=== PATIENT | male | born 1965 | race Caucasian/White ===

== ENCOUNTER 2020-11-27 08:13 | Emergency (ER) | payer OTHER ==
[~2020-11-27] VITALS: Ht 182.9 cm; Wt 83.5 kg
[~2020-11-27 08:13] MED LIST: CIPR500 PO; CRUTCH USE; FAMO20 PO; HYDACE25S PR; HYOS.125 SL; IBUP200 PO; OXYACE5T PO; RXOXYACE PO; RXTRAM50 PO; TRAM50 PO
[2020-11-27 08:49] LABS: BASOPHILS ABSOLUTE AUTO 0.07 K/mm3 (0.00-0.23); BASOPHILS PERCENT AUTO 1 % (0-2); Hematocrit 45.3 % (37.0-53.0); Hemoglobin 15.6 g/dL (13.5-17.5); LYMPHOCYTES PERCENT AUTO 21 % (21-46); MONOCYTES ABSOLUTE AUTO 1.39 K/mm3 (0.16-1.47); MONOCYTES PERCENT AUTO 14 % (4-13); Mean Corpuscular HGB Conc 34.4 g/dL (31.5-36.5); Mean Corpuscular Volume 90 fL (80-100); Mean Platelet Volume 10.2 fL (9.1-12.4); Platelet Count 288 K/mm3 (150-400); RDW Coefficient Variation 13.9 % (11.7-14.2); Red Blood Cell Count 5.03 M/mm3 (4.30-5.90); White Blood Cell Count 10.19 K/mm3 (4.00-11.30)
[2020-11-27 08:59] LABS: EOSINOPHILS ABSOLUTE AUTO 0.39 K/mm3 (0.00-0.68); EOSINOPHILS PERCENT AUTO 4 % (0-6); IMMATURE GRAN ABSOLUTE AUTO 0.03 K/mm3 (0.00-0.10); IMMATURE GRAN PERCENT AUTO 0 % (0-1); NEUTROPHILS ABSOLUTE AUTO 6.21 K/mm3 (1.96-9.15); NEUTROPHILS PERCENT AUTO 61 % (41-73)
[2020-11-27 09:10] LABS: International Normalized Ratio 0.95; Prothrombin Time Results 10.3 Sec (9.7-11.5)
[2020-11-27 09:12] LABS: Alanine Aminotransfer (ALT/SGP 18 U/L (12-78); Albumin, Blood 3.6 g/dL (3.4-5.0); Albumin/Globulin Ratio 0.8 (0.8-1.8); Alk Phos 46 U/L (50-136); Anion Gap 6 mmol/L (6-16); Aspartate Aminotrans (AST/SGOT 11 U/L (12-37); Bilirubin, Total 0.5 mg/dL (0.1-1.0); Blood Urea Nitrogen 12 mg/dL (8-24); Bun/Creatinine Ratio 14.1 (12.0-20.0); CO2, Blood 25 mmol/L (21-32); Calcium, Blood 9.3 mg/dL (8.5-10.1); Chloride, Blood 102 mmol/L (98-108); Creatinine, Blood 0.85 mg/dL (0.60-1.20); Globulin, Blood 4.5 g/dL (2.2-4.0); Glomerular Filtration Rate >60 (60-); Glucose, Blood 105 mg/dL (70-99); Potassium, Blood 3.8 mmol/L (3.5-5.5); Sodium, Blood 133 mmol/L (136-145); Total Protein, Blood 8.1 g/dL (6.4-8.2)
[2020-11-27] MEDS ORDERED: ONDA4ODT MM (09:56)
[2020-11-27] MEDS ORDERED: AMOCLA875 PO (09:56)
== END 2020-11-27 12:06 | disposition home or self-care (01) ==
LOC: ER 08:13
PROVIDERS: Physician Assistant
DX: K51.00 Ulcerative (chronic) pancolitis without complications (principal); Z88.8 Allergy status to other drugs, medicaments and biological substances; Z79.899 Other long term (current) drug therapy
CPT/HCPCS: 36415; 74177; 80053; 83690; 85025; 85610; 86850; 86870; 86900; 86901; 93005; 93010; 96372-59; 96374-59; 99284-25; A9270; J1100; J2405; J7030; Q9967

== ENCOUNTER 2020-12-03 10:26 | Emergency (ER) | payer OTHER ==
[~2020-12-03] VITALS: Ht 182.9 cm; Wt 78.5 kg
[~2020-12-03 10:26] MED LIST changes: +AMOCLA875 PO; +ONDA4ODT MM
[2020-12-03 11:09] LABS: BASOPHILS ABSOLUTE AUTO 0.11 K/mm3 (0.00-0.23); BASOPHILS PERCENT AUTO 1 % (0-2); EOSINOPHILS PERCENT AUTO 7 % (0-6); Hematocrit 44.7 % (37.0-53.0); Hemoglobin 14.9 g/dL (13.5-17.5); IMMATURE GRAN ABSOLUTE AUTO 0.07 K/mm3 (0.00-0.10); IMMATURE GRAN PERCENT AUTO 1 % (0-1); LYMPHOCYTES ABSOLUTE AUTO 2.13 K/mm3 (0.84-5.20); LYMPHOCYTES PERCENT AUTO 17 % (21-46); MONOCYTES ABSOLUTE AUTO 1.65 K/mm3 (0.16-1.47); MONOCYTES PERCENT AUTO 13 % (4-13); Mean Corpuscular HGB 30.2 pg (26.0-34.0); Mean Corpuscular HGB Conc 33.3 g/dL (31.5-36.5); Mean Corpuscular Volume 91 fL (80-100); Mean Platelet Volume 9.9 fL (9.1-12.4); NEUTROPHILS ABSOLUTE AUTO 8.06 K/mm3 (1.96-9.15); NEUTROPHILS PERCENT AUTO 62 % (41-73); Platelet Count 365 K/mm3 (150-400); RDW Coefficient Variation 13.2 % (11.7-14.2); RDW Standard Deviation 43.4 fL (35.1-46.3); Red Blood Cell Count 4.94 M/mm3 (4.30-5.90); White Blood Cell Count 12.92 K/mm3 (4.00-11.30)
[2020-12-03 11:25] LABS: Alanine Aminotransfer (ALT/SGP 13 U/L (12-78); Albumin/Globulin Ratio 0.7 (0.8-1.8); Alk Phos 45 U/L (50-136); Anion Gap 3 mmol/L (6-16); Aspartate Aminotrans (AST/SGOT 5 U/L (12-37); Bilirubin, Total 0.3 mg/dL (0.1-1.0); Blood Urea Nitrogen 10 mg/dL (8-24); Bun/Creatinine Ratio 9.4 (12.0-20.0); CO2, Blood 30 mmol/L (21-32); Calcium, Blood 9.1 mg/dL (8.5-10.1); Chloride, Blood 100 mmol/L (98-108); Creatinine, Blood 1.06 mg/dL (0.60-1.20); Globulin, Blood 4.2 g/dL (2.2-4.0); Glomerular Filtration Rate >60 (60-); Glucose, Blood 111 mg/dL (70-99); Sodium, Blood 133 mmol/L (136-145); Total Protein, Blood 7.2 g/dL (6.4-8.2)
[2020-12-03 11:43] LABS: Magnesium, Blood 2.2 mg/dL (1.6-2.4); Thyroid Stimulating Hormone 4.06 uIU/mL (0.360-4.800)
[2020-12-03 13:10] LABS: Source, Urine Clean Catch
[2020-12-03] MEDS ORDERED: ONDA4ODT SL (13:16)
[2020-12-03] MEDS ORDERED: IMODIUM A-D2 M1 PO (13:16)
[2020-12-03 13:19] LABS: Adenovirus F 40/41 Not Detected (NOT DETECT); Astrovirus Not Detected (NOT DETECT); Campylobacter Sp Not Detected (NOT DETECT); Cryptosporidium Not Detected (NOT DETECT); Cyclospora Cayetanensis Not Detected (NOT DETECT); E. Coli O157 Not Detected (NOT DETECT); Entamoeba Histolytica Not Detected (NOT DETECT); Enteroaggregative E. coli-EAEC Not Detected (NOT DETECT); Enteropathogenic E. coli-EPEC Not Detected (NOT DETECT); Enterotoxigenic E. coli-ETEC Not Detected (NOT DETECT); Giardia Lamblia Not Detected (NOT DETECT); Norovirus GI/GII Not Detected (NOT DETECT); Plesiomonas Shigelloides Not Detected (NOT DETECT); Rotavirus A Not Detected (NOT DETECT); Salmonella Sp Not Detected (NOT DETECT); Sapovirus Not Detected (NOT DETECT); Shiga Toxin-prod E. coli-STEC Not Detected (NOT DETECT); Shigella/Enteroin E. coli-EIEC Not Detected (NOT DETECT); Vibrio Cholerae Not Detected (NOT DETECT); Vibrio Sp Not Detected (NOT DETECT); Yersinia Enterocolitica Not Detected (NOT DETECT)
[2020-12-03 13:21] LABS: Bilirubin, Urine Neg (Neg); Blood, Urine Neg (Neg); Glucose Qualitative, Urine Neg (Neg); Ketones, Urine Neg (Neg); Leukocyte Esterase, Urine Neg (Neg); Nitrite, Urine Neg (Neg); Protein, Urine Neg (Neg); Specific Gravity, Urine 1.005 (1.003-1.022); Urobilinogen, Urine NORM (Normal)
[2020-12-03 13:39] LABS: Appearance, Urine Clear (Clear); Color, Urine Pale Yellow (P-Yellow)
== END 2020-12-03 14:52 | disposition home or self-care (01) ==
LOC: ER 10:26
PROVIDERS: Emergency Medicine
DX: K52.9 Noninfective gastroenteritis and colitis, unspecified (principal); Z88.8 Allergy status to other drugs, medicaments and biological substances
CPT/HCPCS: 0097U; 36415; 51798; 80053; 81003; 83735; 84443; 85025; 96361; 96374; 99284-25; J2405; J7120

== ENCOUNTER 2020-12-07 08:17 | Emergency (ER) | payer OTHER ==
[~2020-12-07] VITALS: Ht 182.9 cm; Wt 78.5 kg
[~2020-12-07 08:17] MED LIST changes: +IMODIUM A-D2 M1 PO; +ONDA4ODT SL
[2020-12-07 09:43] LABS: BASOPHILS ABSOLUTE AUTO 0.06 K/mm3 (0.00-0.23); BASOPHILS PERCENT AUTO 1 % (0-2); EOSINOPHILS ABSOLUTE AUTO 0.43 K/mm3 (0.00-0.68); EOSINOPHILS PERCENT AUTO 4 % (0-6); Hematocrit 42.3 % (37.0-53.0); Hemoglobin 14.1 g/dL (13.5-17.5); IMMATURE GRAN ABSOLUTE AUTO 0.05 K/mm3 (0.00-0.10); IMMATURE GRAN PERCENT AUTO 1 % (0-1); LYMPHOCYTES PERCENT AUTO 18 % (21-46); MONOCYTES ABSOLUTE AUTO 1.16 K/mm3 (0.16-1.47); MONOCYTES PERCENT AUTO 11 % (4-13); Mean Corpuscular HGB 30.4 pg (26.0-34.0); Mean Corpuscular HGB Conc 33.3 g/dL (31.5-36.5); Mean Corpuscular Volume 91 fL (80-100); Mean Platelet Volume 9.7 fL (9.1-12.4); NEUTROPHILS ABSOLUTE AUTO 6.68 K/mm3 (1.96-9.15); NEUTROPHILS PERCENT AUTO 66 % (41-73); Platelet Count 412 K/mm3 (150-400); RDW Coefficient Variation 13.5 % (11.7-14.2); RDW Standard Deviation 46.1 fL (35.1-46.3); Red Blood Cell Count 4.64 M/mm3 (4.30-5.90); White Blood Cell Count 10.18 K/mm3 (4.00-11.30)
[2020-12-07 09:54] LABS: Alanine Aminotransfer (ALT/SGP 15 U/L (12-78); Albumin, Blood 2.7 g/dL (3.4-5.0); Albumin/Globulin Ratio 0.7 (0.8-1.8); Alk Phos 45 U/L (50-136); Anion Gap 0 mmol/L (6-16); Aspartate Aminotrans (AST/SGOT 6 U/L (12-37); Bilirubin, Total 0.1 mg/dL (0.1-1.0); Blood Urea Nitrogen 8 mg/dL (8-24); Bun/Creatinine Ratio 8.7 (12.0-20.0); CO2, Blood 31 mmol/L (21-32); Calcium, Blood 8.5 mg/dL (8.5-10.1); Chloride, Blood 105 mmol/L (98-108); Creatinine, Blood 0.92 mg/dL (0.60-1.20); Globulin, Blood 4.1 g/dL (2.2-4.0); Glomerular Filtration Rate >60 (60-); Glucose, Blood 92 mg/dL (70-99); Potassium, Blood 4.7 mmol/L (3.5-5.5); Sodium, Blood 136 mmol/L (136-145); Total Protein, Blood 6.8 g/dL (6.4-8.2)
[2020-12-07] MEDS ORDERED: LOPE2C PO (10:46)
[2020-12-07] MEDS ORDERED: ONDA4ODT MM (10:46)
== END 2020-12-07 11:10 | disposition home or self-care (01) ==
LOC: ER 08:17
PROVIDERS: Physician Assistant
DX: R19.7 Diarrhea, unspecified (principal); R10.30 Lower abdominal pain, unspecified; Z88.8 Allergy status to other drugs, medicaments and biological substances; Z79.899 Other long term (current) drug therapy
CPT/HCPCS: 36415; 80053; 83690; 85025; 99284; J7030

== ENCOUNTER 2020-12-16 13:11 | Emergency (ER) | payer OTHER ==
[~2020-12-16] VITALS: Ht 182.9 cm; Wt 80.7 kg
[~2020-12-16 13:11] MED LIST changes: +LOPE2C PO
[2020-12-16 14:11] LABS: BASOPHILS ABSOLUTE AUTO 0.04 K/mm3 (0.00-0.23); BASOPHILS PERCENT AUTO 0 % (0-2); EOSINOPHILS ABSOLUTE AUTO 0.75 K/mm3 (0.00-0.68); EOSINOPHILS PERCENT AUTO 8 % (0-6); Hematocrit 40.8 % (37.0-53.0); Hemoglobin 13.7 g/dL (13.5-17.5); IMMATURE GRAN ABSOLUTE AUTO 0.04 K/mm3 (0.00-0.10); IMMATURE GRAN PERCENT AUTO 0 % (0-1); LYMPHOCYTES ABSOLUTE AUTO 1.53 K/mm3 (0.84-5.20); LYMPHOCYTES PERCENT AUTO 16 % (21-46); MONOCYTES ABSOLUTE AUTO 0.98 K/mm3 (0.16-1.47); MONOCYTES PERCENT AUTO 10 % (4-13); Mean Corpuscular HGB 29.9 pg (26.0-34.0); Mean Corpuscular HGB Conc 33.6 g/dL (31.5-36.5); Mean Corpuscular Volume 89 fL (80-100); Mean Platelet Volume 9.4 fL (9.1-12.4); NEUTROPHILS ABSOLUTE AUTO 6.36 K/mm3 (1.96-9.15); NEUTROPHILS PERCENT AUTO 66 % (41-73); Platelet Count 328 K/mm3 (150-400); RDW Coefficient Variation 13.6 % (11.7-14.2); RDW Standard Deviation 44.5 fL (35.1-46.3); Red Blood Cell Count 4.58 M/mm3 (4.30-5.90)
[2020-12-16 14:16] LABS: Alanine Aminotransfer (ALT/SGP 21 U/L (12-78); Albumin, Blood 2.3 g/dL (3.4-5.0); Albumin/Globulin Ratio 0.5 (0.8-1.8); Alk Phos 53 U/L (50-136); Anion Gap 2 mmol/L (6-16); Aspartate Aminotrans (AST/SGOT 17 U/L (12-37); Bilirubin, Total 0.2 mg/dL (0.1-1.0); Blood Urea Nitrogen 10 mg/dL (8-24); Bun/Creatinine Ratio 13.3 (12.0-20.0); CO2, Blood 28 mmol/L (21-32); Calcium, Blood 8.1 mg/dL (8.5-10.1); Chloride, Blood 106 mmol/L (98-108); Creatinine, Blood 0.75 mg/dL (0.60-1.20); Globulin, Blood 4.2 g/dL (2.2-4.0); Glomerular Filtration Rate >60 (60-); Glucose, Blood 107 mg/dL (70-99); Potassium, Blood 4.6 mmol/L (3.5-5.5); Sodium, Blood 136 mmol/L (136-145); Total Protein, Blood 6.5 g/dL (6.4-8.2)
== END 2020-12-16 15:34 | disposition home or self-care (01) ==
LOC: ER 13:11
PROVIDERS: Physician Assistant
DX: R19.7 Diarrhea, unspecified (principal); R11.2 Nausea with vomiting, unspecified
CPT/HCPCS: 36415; 80053; 83690; 85025; 99283

== ENCOUNTER 2021-02-20 07:31 | Day surgery (SDC) | payer OTHER ==
[~2021-02-20] VITALS: Ht 182.9 cm; Wt 84.4 kg
--- NOTE | 2021-02-20 08:07 | NUR ---
Ambulatory in Day Surgery History, Chart, Medications and Allergies reviewed before start of procedure. Lungs clear T/O to Auscultation. Pre-Op teaching done. Pt verbalizes understanding. Patient States Post-Procedure ride home has been arranged.
--- NOTE | 2021-02-20 08:40 | NUR ---
02/20/21 0840 Ana Gonzalez History, Chart, Medications and Allergies reviewed before start of procedure. Patient confirms NPO status and agrees with scheduled surgery. 3-LEAD EKG REVIEWED WITH PHYSICIAN PRIOR TO START OF PROCEDURE. MONITOR INTACT WITH CONTINUOUS PULSE OXIMETRY AND INTERMITTENT BP. PATIENT DETERMINED TO BE ASA APPROPRIATE FOR PROPOFOL SEDATION PRIOR TO START OF PROCEDURE BY .
--- NOTE | 2021-02-20 09:39 | NUR ---
Discharge instructions reviewed with patient. Patient verbalizes understanding. Copy given to patient to take home. Discharged via wheelchair to private car for ride home.
== END 2021-02-20 09:40 | disposition home or self-care (01) ==
LOC: ORSCMMR 07:31 → ORD 08:30 → ORSCMMR 09:40
PROVIDERS: Internal Medicine Gastroenterology
PROC: 0DBN8ZX Excision of Sigmoid Colon, Via Natural or Artificial Opening Endoscopic, Diagnostic (ICD-10-PCS; principal; 2021-02-20 08:30)
PROC: 0DBL8ZX Excision of Transverse Colon, Via Natural or Artificial Opening Endoscopic, Diagnostic (ICD-10-PCS; principal; 2021-02-20 08:30)
PROC: 0DBB8ZX Excision of Ileum, Via Natural or Artificial Opening Endoscopic, Diagnostic (ICD-10-PCS; principal; 2021-02-20 08:30)
PROC: 0DBK8ZX Excision of Ascending Colon, Via Natural or Artificial Opening Endoscopic, Diagnostic (ICD-10-PCS; principal; 2021-02-20 08:30)
DX: K62.5 Hemorrhage of anus and rectum (principal); R19.7 Diarrhea, unspecified; D12.3 Benign neoplasm of transverse colon; K64.8 Other hemorrhoids; K52.9 Noninfective gastroenteritis and colitis, unspecified; Z87.891 Personal history of nicotine dependence
CPT/HCPCS: 88305; J2704; J7120

== ENCOUNTER → 2021-03-28 | Outpatient (CLI) | payer OTHER | END | disposition home or self-care (01) | LOC: LAB SHORT 17:45 → LAB 17:45 | DX: L02.91 Cutaneous abscess, unspecified (principal) | CPT/HCPCS: 87070; 87077; 87147; 87186; 87205 ==

== ENCOUNTER 2024-04-04 11:59 | Observation (INO) | payer OTHER ==
[~2024-04-04] VITALS: Ht 182.9 cm; Wt 84.3 kg
[~2024-04-04 11:59] MED LIST changes: +ASPI325 PO; +Acerola C500 MG PO; +DOCU100 PO; +ENTRESTO 24 MG1 EACH PO; +FERSU300 PO; +FURO40 PO; +JARDIANCE10 MG PO; +METO100ER PO; +SPIR25 PO
[2024-04-04 12:55] LABS: BASOPHILS ABSOLUTE AUTO 0.05 K/mm3 (0.00-0.23); BASOPHILS PERCENT AUTO 1 % (0-2); EOSINOPHILS PERCENT AUTO 3 % (0-6); Hematocrit 44.1 % (37.0-53.0); IMMATURE GRAN ABSOLUTE AUTO 0.02 K/mm3 (0.00-0.10); IMMATURE GRAN PERCENT AUTO 0 % (0-1); LYMPHOCYTES PERCENT AUTO 43 % (21-46); MONOCYTES ABSOLUTE AUTO 1.03 K/mm3 (0.16-1.47); MONOCYTES PERCENT AUTO 14 % (4-13); Mean Corpuscular HGB 29.6 pg (26.0-34.0); Mean Corpuscular Volume 87 fL (80-100); Mean Platelet Volume 10.7 fL (9.1-12.4); NEUTROPHILS ABSOLUTE AUTO 2.97 K/mm3 (1.96-9.15); NEUTROPHILS PERCENT AUTO 40 % (41-73); Platelet Count 196 K/mm3 (150-400); RDW Coefficient Variation 19.3 % (11.7-14.2); RDW Standard Deviation 58.6 fL (35.1-46.3); Red Blood Cell Count 5.06 M/mm3 (4.30-5.90); White Blood Cell Count 7.47 K/mm3 (4.00-11.30)
[2024-04-04 13:09] LABS: Albumin, Blood 3.8 g/dL (3.4-5.0); Albumin/Globulin Ratio 0.9 (0.8-1.8); Bilirubin, Total 0.7 mg/dL (0.1-1.0); Bun/Creatinine Ratio 28.8 (12.0-20.0); Creatinine, Blood 0.83 mg/dL (0.60-1.20); Globulin, Blood 4.2 g/dL (2.2-4.0); Potassium, Blood 3.8 mmol/L (3.5-5.5)
[2024-04-04] MEDS ORDERED: Aspirin 325 MG Tab PO ONE (13:35)
[2024-04-04] MEDS ORDERED: FLU VACC TS2024-25(6MOS UP)/PF 45 MCG/0.5 ML SYRINGE IM SCH (15:05)
[2024-04-04] MEDS ORDERED: Acetaminophen 325 MG TABLET PO PRN (15:05)
[2024-04-04 15:45] LABS: Anti-Xa UFH, PHA Monitoring <0.10 IU/mL; International Normalized Ratio 1.01; Prothrombin Time Results 10.8 Sec (9.7-11.5)
[2024-04-04] MEDS ORDERED: Heparin Sodium 10,000 Units/ML 1ML MDV IV ONE (16:00)
[2024-04-04] MEDS ORDERED: Heparin Sodium,Porcine/0.5 NS 500 ML IV SCH (16:00)
[2024-04-04 16:57] VITALS: BP 149/111
[2024-04-04] MEDS ORDERED: Ascorbic Acid 250 MG Chew PO SCH (17:00)
--- NOTE | 2024-04-04 17:25 | NUR ---
ARRIVAL NOTE: PT ARRIVES TO MED FLOOR FROM ER AT APPROX 1644. HE IS ALERT, SLOW TO RESPOND TO QUESTIONS. HE ANSWERS QUESTIONS APPROPRIATELY AND FOLLOW COMMANDS. HE IS ABLE TO MOVE ALL LIMBS AND SHUT OFF WORKER IS EQUALLY BILATERALLY. SERGIO. HE IS ON TELE IN AFIB WITH RATES IN THE LOW 100S. DENIES CHEST PAIN/PRESSURE. HE IS ON RA IS ON WITH SPO2>90% DENIES SOB. HE IS CONT AND IND WITH ADLS. HEPARIN IS RUNNING PER EMAR. WILL CONTINUE TO [facility] AND REPORT TO ONCOMING RN
[2024-04-04] MEDS ORDERED: Ferrous Sulfate 325 MG Tab PO SCH (17:30)
--- NOTE | 2024-04-04 19:23 | NUR ---
1919- TELE CALLED AND REPORTED PT HAD A 7 BEAT RUN OF V -TACH. PT ASSESSED AND DENIES CX PAIN OR SOB.
[2024-04-04 19:31] VITALS: BP 122/85
[2024-04-05] VITALS (7 sets, daily range): BP systolic 119–167; BP diastolic 79–124
[2024-04-05] MEDS ORDERED: Dose Adjust by Pharmacy XX STA ×3 (00:24→16:10)
[2024-04-05] MEDS ORDERED: Metoprolol Tartrate 1 MG/ML 5 ML VIAL IV PRN (01:15)
--- NOTE | 2024-04-05 05:13 | NUR ---
NOC SUMMARY- PT HAS HAD SEVERAL EPISODES OF SHORT RUNS OF V TACH. PT ASSESSED AND DENIED SOB OR CX PAIN. PT ALSO HAD SOME EPISODES OF HEART RATE INTO THE 150'S. PROVIDER CALLED AND PRN LOPRESSOR FOR SUSTAINED HEART RATE GREATER THAN 110 WAS ORDERED. PT HAS SLEPT FOR MOST OF SHIFT. PT HAS BEEN UP TO VOID. WITH MINIMAL EXERTION PT'S HEART RATE INCREASES AND RESDUCES WITH REST. PT DENIES SOB OR CX PAIN DURING EXERTION. CALL LIGHT IN REACH.
[2024-04-05 07:01] LABS: BASOPHILS ABSOLUTE AUTO 0.06 K/mm3 (0.00-0.23); BASOPHILS PERCENT AUTO 1 % (0-2); EOSINOPHILS ABSOLUTE AUTO 0.16 K/mm3 (0.00-0.68); EOSINOPHILS PERCENT AUTO 2 % (0-6); Hematocrit 42.6 % (37.0-53.0); IMMATURE GRAN ABSOLUTE AUTO 0.01 K/mm3 (0.00-0.10); IMMATURE GRAN PERCENT AUTO 0 % (0-1); LYMPHOCYTES ABSOLUTE AUTO 2.55 K/mm3 (0.84-5.20); LYMPHOCYTES PERCENT AUTO 38 % (21-46); MONOCYTES ABSOLUTE AUTO 0.92 K/mm3 (0.16-1.47); MONOCYTES PERCENT AUTO 14 % (4-13); Mean Corpuscular HGB Conc 35.2 g/dL (31.5-36.5); Mean Corpuscular Volume 85 fL (80-100); Mean Platelet Volume 10.6 fL (9.1-12.4); NEUTROPHILS ABSOLUTE AUTO 2.97 K/mm3 (1.96-9.15); NEUTROPHILS PERCENT AUTO 45 % (41-73); Platelet Count 173 K/mm3 (150-400); RDW Coefficient Variation 18.8 % (11.7-14.2); RDW Standard Deviation 56.8 fL (35.1-46.3); White Blood Cell Count 6.67 K/mm3 (4.00-11.30)
[2024-04-05 07:19] LABS: Bun/Creatinine Ratio 25.6 (12.0-20.0); Creatinine, Blood 0.74 mg/dL (0.60-1.20); Potassium, Blood 4.2 mmol/L (3.5-5.5)
[2024-04-05] MEDS ORDERED: Metoprolol Succinate 50 MG TABCR PO SCH (09:00)
[2024-04-05] MEDS ORDERED: Spironolactone 25 MG Tab PO SCH (09:00)
[2024-04-05] MEDS ORDERED: Furosemide 40 MG Tab PO SCH (09:00)
[2024-04-05] MEDS ORDERED: Empagliflozin 10 MG TAB PO SCH (09:00)
[2024-04-05] MEDS ORDERED: Clopidogrel Bisulfate 300 MG Cap PO ONE (17:20)
--- NOTE | 2024-04-05 18:27 | NUR ---
PATIENT ELOPED RECIEVED CALL FROM TELEMETRY AROUND 1645 STATING PATIENT IN AFIB WITH RATE OF 160-180s. THEN INFORMED PATIENT TELEMTRY NOT READING, WENT TO PATIENT'S ROOM IMMEDIATELY TO ASSESS AND PATIENT NOT IN HIS ROOM. BELONGINGS STILL AT BEDSIDE. SECURITY WAS CALLED BY OTHER [employer] HUMANITIES TEACHER AND BEFORE INVOLVEMENT PATIENT HAD RETURNED TO MEDICAL FLOOR AND WAS LOCATED IN THE [facility] PUBLIC RESTROOM. PATIENT LEFT TO "ROLL THE WINDOWS UP IN THE TRUCK" WITH PIV AND TELEMETRY IN PLACE AND REMAINED CONNECTED TO HIS HEPARIN GTT WITH IV POLE UPON RETURN. PATIENT ASSISTED BACK TO ROOM 303 BY BREAK NURSE AND MD INFORMED, HEPARIN GTT DISCONTINUED. PATIENT WITH EXPRESSIVE APHASIA, INCREASED CONFUSION, ABLE TO ANSWER QUESTIONS CORRECTLY AND REMAINS ORIENTED X4. PATIENT SLOW TO RESPOND, BUT ABLE TO VERBALIZE NEEDS WHEN GIVEN AMPLE TIME. MRI RESULTS NEGATIVE. PATIENT SWITCHED TO ORAL ANTICOAGULANTS AND TOX SCREEN ORDERED AND SPECIMEN COLLECTED AND SENT TO LAB. IV DRESSING CHANGED DUE TO LEAKING AND BLOOD AROUND SITE, PIV STILL DRAWING BLOOD AND IN PLACE. BED ALARM IN PLACE DUE TO ELOPEMENT RISK AND CHARGE NURSE INFORMED TO POSSIBLY TRANSFER PATIENT TO LOCKED UNIT FOR SAFETY. FAMILY AT BEDSIDE AND SPOKE WITH MD AFTER ELOPEMENT.
[2024-04-05 18:32] LABS: U Amphetamine Screen Not Detected; U Barbituate Screen Not Detected; U Benzodiazapine Screen Not Detected; U Buprenorphine Screen Not Detected; U Cannabinoids Screen DETECTED; U Cocaine Screen Not Detected; U Methadone Screen Not Detected; U Methamphetamine Screen Not Detected; U Opiates Screen Not Detected; U Oxycodone Screen Not Detected; U Phencyclidine Screen Not Detected
--- NOTE | 2024-04-05 18:38 | NUR ---
TELEMETRY V TACH 5 BEATS TELEMETRY CALLED TO INFORM PATIENT WITH 5 BEATS OF V TACH, INFORMED AND DISCUSSED PATIENT HISTORY. MD STATES WILL POSSIBLY ORDER MRA OR CTA PENDING TOX SCREEN RESULTS.
--- NOTE | 2024-04-05 18:40 | NUR ---
SHIFT SUMMARY PATIENT REMAINS CONFUSED AND SLOW TO RESPOND. CONTINUES WITH Q 4 NEURO CHECKS. HEPARIN GTT STOPPED. ELOPEMENT RISK, CHARGE NURSE AWARE. TOX SCREEN PENDING. SEE PREVIOUS NURSE NOTES THIS SHIFT.
[2024-04-05] MEDS ORDERED: Ondansetron HCl 2 MG / ML 2ML Vial IV PRN (20:00)
[2024-04-05] MEDS ORDERED: Prochlorperazine Edisylate 10 mg Vial IV PRN (23:10)
[2024-04-05] MEDS ORDERED: Nitroglycerin 0.4 MG SUBL ONE (23:47)
[2024-04-05] MEDS ORDERED: Nitroglycerin 0.4 MG SUBL SL PRN (23:50)
[2024-04-06 00:15] VITALS: BP 107/94
--- NOTE | 2024-04-06 00:23 | NUR ---
2300- PT BEGAN HAVING NAUSEA W/ VOMITING. DURING THIS PERIOD TELETECH CALLED AND INFORMED OF PT HEART RATE IN 170'S. PROVIDER CALLED AND DR ADHIKARI ORDERED COMPAZINE. WHILE AWAITING ORDER PT BEGAN C/O CX DISCOMFORT W/SOB AND WAS PLACED ON O2 2LPM VIA NC. PT WAS ALSO CONFUSED TO PLACE AND TIME. NO OTHER NEURO ISSUES WERE NOTED. EKG WAS PERFORMED AND PROVIDER ORDERED TO GIVE PRN LOPRESSOR. PT BEGAN C/O 10/10 CX PAIN PROVIDER NOTIFIED AND NTG WAS ORDERED AND GIVEN. PT PAIN REDUCED TO 6/ 10. PT CONFUSION RESOLVING. ORDERED TROPOINS WAS COLLECTED. PT REMAINS ON TELE.
[2024-04-06 04:34] LABS: Hematocrit 45.4 % (37.0-53.0); Hemoglobin 15.7 g/dL (13.5-17.5); Mean Platelet Volume 10.2 fL (9.1-12.4); Platelet Count 199 K/mm3 (150-400)
--- NOTE | 2024-04-06 04:39 | NUR ---
NOC SUMMARY- PT HAD SEVERAL EPISODES OF N/V. PT TX PER SEP W/ EVENTUAL RELIEF. PT CX PAIN RESOLVED WITH NTG. PT REMAINS ON O2 @ 2LPM VIA NC DUE TO SOB. PT SERIAL TROPONINS REMAIN UNREMARKABLE. PT REMAINS IN AFIB. PT RECIEVED PRN LOPRESSOR WITH GOOD RESULTS. PT PERIODS OF CONFUSION RESOLVED QUICKLY. PT HAD NO OTHER NEURO DEFICITS. PT AMBULATES WELL BUT IS AWARE TO USE CALL LIGHT WHEN HE NEEDS TO GET UP. BED ALARM IS ON FOR SAFETY. PT CURRENTLY RESTING IN NO DISTRESS. CALL LIGHT IN REACH.
[2024-04-06 04:56] VITALS: BP 123/91
[2024-04-06 07:33] VITALS: BP 119/101
[2024-04-06] MEDS ORDERED: Aspirin 81 MG TabEC PO SCH (09:00)
[2024-04-06] MEDS ORDERED: Clopidogrel Bisulfate 75 MG Tab PO SCH (09:00)
[2024-04-06] MEDS ORDERED: DiphenhydrAMINE HCl 50 MG/ML 1ML Vial IV PRN (09:45)
[2024-04-06] MEDS ORDERED: MethylPREDNISolone Sod Succ 125 MG Vial IV ONE (09:45)
--- NOTE | 2024-04-06 09:46 | NUR ---
PATIENT WITH ALLERGIC REACTION TO IV CONTRAST FROM CTA. PATIENT RETURNED FROM SCAN WITH ITCHING AND RASH ON ABDOMEN. DR. BAUTISTA INFORMED AND NEW ORDERS RECIEVED FOR BENDADRYL 25MG IV Q1HR PRN AND SOLUMEDROL 60MG ONE TIME DOSE NOW. ORDERS PLACED AND WILL BE ADMINISTERED ONCE APROVED BY PHARMACY. ALLERGY ADDED TO ALLERGY LIST. PATIENT REMAINS STABLE, A/OX4, NEUROs REMAINED UNCHANGED.
[2024-04-06] MEDS ORDERED: CLOP75 PO (13:14)
[2024-04-06 15:47] VITALS: BP 110/84
--- NOTE | 2024-04-06 16:57 | NUR ---
DISCHARGE SUMMARY PATIENT A/OX4, ABLE TO MAKE NEEDS KNOWN. NO NEURO DEFECITS NOTED TODAY. PATIENT REMAINS ORIENTED WITHOUT CONFUSION. TALKATIVE AND PLEASANT WITH STAFF MEMBERS. CTA NEGATIVE THIS MORNING, TELEMETRY IN PLACE, A FLUTTER RATE 120s. MD AWARE. PRN METOPROLOL GIVEN IV. PATIENT WITH ALLERGIC REACTION TO IV CONTRACT THIS MORNING AFTER CTA AND PRN BENADRYL ADMINISTERED WELL A ONE TIME DOSE OF SOLUMEDROL. IDOINE CONTRAST MEDIA ADDED TO PATIENT'S ALLERGY LIST. SPOKE WITH CHE, PATIENT'S SIGNIFICANT OTHER, AND DISCUSSED DISCHARGE INSTRUCTIONS WELL WITH THE PATIENT. NEW PRESCRIPTION FAXED TO [facility] SUN STATES WILL CIVIL DIVISION COMMANDER DEPUTY SHERIFF FROM PHARMACY TOMORROW, I STATED HE HAD ALREADY HAS HAD HIS DOSE TODAY. PATIENT AND SPOUSE WITH NO QUESTIONS AT TIME OF DISCHARGE AND INSTRUCTED TO FOLLOW UP WITH PRIMARY CARE SOON POSSIBLE. PATIENT ALSO INSTRUCTED TO NOT DRIVE A VEHICLE, PER DR. CASH'S RECOMMENDATION. PATIENT ASSISTED TO FAMILY TRANSPORTATION VIA WHEELCHAIR. PIV AND TELE REMOVED PRIOR TO DISCHARGE.
[2024-04-06] MEDS ORDERED: Rivaroxaban 10 MG Tab PO SCH (17:00)
== END 2024-04-06 17:40 | disposition home or self-care (01) ==
LOC: ER 11:59 → MEDS 12:00
PROVIDERS: Emergency Medicine; ADMIT Internal Medicine
DX: G45.9 Transient cerebral ischemic attack, unspecified (principal); I42.0 Dilated cardiomyopathy; I48.20 Chronic atrial fibrillation, unspecified; I50.20 Unspecified systolic (congestive) heart failure; D50.9 Iron deficiency anemia, unspecified; I07.1 Rheumatic tricuspid insufficiency; J44.9 Chronic obstructive pulmonary disease, unspecified; D17.1 Benign lipomatous neoplasm of skin and subcutaneous tissue of trunk; Z88.8 Allergy status to other drugs, medicaments and biological substances; Z79.82 Long term (current) use of aspirin; Z79.899 Other long term (current) drug therapy
CPT/HCPCS: 36415; 70450; 70496; 70551; 80048; 80053; 82947; 84484; 85014; 85018; 85025; 85049; 85520; 85610; 85730; 93005; 93010; 93880; 96365; 96366; 96375; 96376; 99285-25; A9270; G0378; J0780; J1200; J1644; J2405; J2919; Q9967

== ENCOUNTER → 2024-05-23 | Outpatient (CLI) | payer OTHER ==
[~2024-05-23] MED LIST changes: +CLOP75 PO
[2024-05-26 17:21] LABS: CALPROTECTIN,FECAL 21 ug/g (<=49)
== END ==
LOC: LAB 08:55 → LAB SHORT 08:55
PROVIDERS: Physician Assistant Medical
DX: K51.90 Ulcerative colitis, unspecified, without complications (principal)
CPT/HCPCS: 83993

== ENCOUNTER 2024-07-12 09:59 | Emergency (ER) | payer OTHER ==
[~2024-07-12] VITALS: Ht 182.9 cm; Wt 91.6 kg
[2024-07-12] MEDS ORDERED: AMOCLA875 PO (10:35)
[2024-07-12 10:45] VITALS: BP 106/83
== END 2024-07-12 11:09 | disposition home or self-care (01) ==
LOC: ER 09:59
DX: K61.0 Anal abscess (principal); I48.91 Unspecified atrial fibrillation; Z87.891 Personal history of nicotine dependence; Z86.73 Personal history of transient ischemic attack (TIA), and cerebral infarction without residual deficits; Z79.02 Long term (current) use of antithrombotics/antiplatelets; Z79.82 Long term (current) use of aspirin; Z79.899 Other long term (current) drug therapy; Z91.041 Radiographic dye allergy status; Z88.8 Allergy status to other drugs, medicaments and biological substances
CPT/HCPCS: 99283

== ENCOUNTER 2024-11-23 01:34 | Emergency (ER) | payer OTHER ==
[~2024-11-23] VITALS: Ht 182.9 cm; Wt 89.4 kg
[~2024-11-23 01:34] MED LIST changes: +AMIODARONE HCL200 M1 PO; +DOCU100; +ELIQUIS2.5 MG PO; +FOLI1 PO; +SULF500 PO; +Vitamin C100 M1; +[UNRECOGNIZED DRUG - CODE] PO
[2024-11-23 01:50] VITALS: BP 178/112
[2024-11-23] MEDS ORDERED: Diclofenac Sodium 100 GM TUBE TOP ONE (02:40)
[2024-11-23] MEDS ORDERED: Acetaminophen 500 MG Tab PO ONE (02:40)
[2024-11-23 03:08] LABS: BASOPHILS ABSOLUTE AUTO 0.05 K/mm3 (0.00-0.23); BASOPHILS PERCENT AUTO 1 % (0-2); EOSINOPHILS ABSOLUTE AUTO 0.22 K/mm3 (0.00-0.68); EOSINOPHILS PERCENT AUTO 4 % (0-6); Hematocrit 40.6 % (37.0-53.0); Hemoglobin 13.2 g/dL (13.5-17.5); IMMATURE GRAN ABSOLUTE AUTO 0.01 K/mm3 (0.00-0.10); IMMATURE GRAN PERCENT AUTO 0 % (0-1); LYMPHOCYTES ABSOLUTE AUTO 2.03 K/mm3 (0.84-5.20); LYMPHOCYTES PERCENT AUTO 32 % (21-46); MONOCYTES ABSOLUTE AUTO 0.78 K/mm3 (0.16-1.47); MONOCYTES PERCENT AUTO 12 % (4-13); Mean Corpuscular HGB 32.7 pg (26.0-34.0); Mean Corpuscular HGB Conc 32.5 g/dL (31.5-36.5); Mean Corpuscular Volume 101 fL (80-100); Mean Platelet Volume 10.7 fL (9.1-12.4); NEUTROPHILS ABSOLUTE AUTO 3.23 K/mm3 (1.96-9.15); NEUTROPHILS PERCENT AUTO 51 % (41-73); Platelet Count 219 K/mm3 (150-400); RDW Coefficient Variation 13.6 % (11.7-14.2); RDW Standard Deviation 50.6 fL (35.1-46.3); Red Blood Cell Count 4.04 M/mm3 (4.30-5.90); White Blood Cell Count 6.32 K/mm3 (4.00-11.30)
[2024-11-23 03:27] LABS: Albumin, Blood 3.6 g/dL (3.4-5.0); Albumin/Globulin Ratio 0.9 (0.8-1.8); Bilirubin, Total 0.3 mg/dL (0.1-1.0); Bun/Creatinine Ratio 14.9 (12.0-20.0); Creatinine, Blood 0.81 mg/dL (0.60-1.20); Globulin, Blood 3.8 g/dL (2.2-4.0); Magnesium, Blood 1.9 mg/dL (1.6-2.4); Phosphorus, Blood 4.1 mg/dL (2.5-4.9); Total Protein, Blood 7.4 g/dL (6.4-8.2)
[2024-11-23] MEDS ORDERED: LIDO700A20 TOP (03:44)
[2024-11-23] MEDS ORDERED: Ketorolac Tromethamine 15mg Vial IV ONE (03:45)
== END 2024-11-23 04:00 | disposition home or self-care (01) ==
LOC: ER 01:34
PROVIDERS: Emergency Medicine
DX: M54.32 Sciatica, left side (principal); D64.9 Anemia, unspecified; Z59.00 Homelessness unspecified; Z91.041 Radiographic dye allergy status; Z88.8 Allergy status to other drugs, medicaments and biological substances; Z79.899 Other long term (current) drug therapy; Z79.01 Long term (current) use of anticoagulants; I48.91 Unspecified atrial fibrillation; I50.20 Unspecified systolic (congestive) heart failure; Z87.891 Personal history of nicotine dependence
CPT/HCPCS: 80053; 83735; 84100; 85025; 96374; 99283-25; A9270; J1885

== ENCOUNTER 2025-07-03 12:53 | Emergency (ER) | payer OTHER ==
[~2025-07-03] VITALS: Ht 182.9 cm; Wt 86.2 kg
[~2025-07-03 12:53] MED LIST changes: +LIDO700A20 TOP
[2025-07-03 13:35] LABS: BASOPHILS ABSOLUTE AUTO 0.05 K/mm3 (0.00-0.23); BASOPHILS PERCENT AUTO 0 % (0-2); EOSINOPHILS ABSOLUTE AUTO 0.08 K/mm3 (0.00-0.68); EOSINOPHILS PERCENT AUTO 1 % (0-6); Hematocrit 43.4 % (37.0-53.0); Hemoglobin 15.2 g/dL (13.5-17.5); IMMATURE GRAN ABSOLUTE AUTO 0.03 K/mm3 (0.00-0.10); IMMATURE GRAN PERCENT AUTO 0 % (0-1); LYMPHOCYTES ABSOLUTE AUTO 2.14 K/mm3 (0.84-5.20); LYMPHOCYTES PERCENT AUTO 19 % (21-46); MONOCYTES ABSOLUTE AUTO 1.10 K/mm3 (0.16-1.47); MONOCYTES PERCENT AUTO 10 % (4-13); Mean Corpuscular HGB Conc 35.0 g/dL (31.5-36.5); Mean Corpuscular Volume 94 fL (80-100); NEUTROPHILS ABSOLUTE AUTO 7.81 K/mm3 (1.96-9.15); NEUTROPHILS PERCENT AUTO 70 % (41-73); NRBC ABSOLUTE 0.00 K/mm3 (0.00-0.02); NRBC Auto 0.0 /100 WBC (0.0-0.2); Platelet Count 189 K/mm3 (150-400); RDW Coefficient Variation 13.4 % (11.7-14.2); RDW Standard Deviation 46.5 fL (35.1-46.3)
[2025-07-03] MEDS ORDERED: Morphine Sulfate 4 MG/1 ML Injection IV ONE (14:15)
[2025-07-03] MEDS ORDERED: Ondansetron HCl 2 MG / ML 2ML Vial IV ONE (14:15)
[2025-07-03 14:19] LABS: Alanine Aminotransfer (ALT/SGP 25.0 U/L (12-78); Albumin, Blood 4.6 g/dL (3.4-5.0); Albumin/Globulin Ratio 1.1 (0.8-1.8); Anion Gap 11.0 mmol/L (3-11); Aspartate Aminotrans (AST/SGOT 24.0 U/L (12-37); Bilirubin, Total 0.9 mg/dL (0.1-1.0); Blood Urea Nitrogen 17.0 mg/dL (8-24); CO2, Blood 22.0 mmol/L (21-32); Calcium, Blood 10.1 mg/dL (8.5-10.1); Chloride, Blood 99.0 mmol/L (98-108); Creatinine, Blood 1.34 mg/dL (0.60-1.20); Globulin, Blood 4.3 g/dL (2.2-4.0); Glucose, Blood 102.0 mg/dL (70-99); Potassium, Blood 3.4 mmol/L (3.5-5.5); Sodium, Blood 129.0 mmol/L (136-145); Total Protein, Blood 8.9 g/dL (6.4-8.2)
[2025-07-03] MEDS ORDERED: Prochlorperazine Edisylate 10 mg Vial IV ONE (16:00)
[2025-07-03] MEDS ORDERED: PROM25 PO (17:22)
[2025-07-03] MEDS ORDERED: Pepcid40 MG PO (17:22)
[2025-07-03] MEDS ORDERED: ONDA4ODT MM (17:22)
[2025-07-03 18:26] VITALS: BP 179/119
== END 2025-07-03 18:27 | disposition home or self-care (01) ==
LOC: ER 12:53
PROVIDERS: Student in an Organized Health Care Education/Training Program
DX: R11.2 Nausea with vomiting, unspecified (principal); R07.9 Chest pain, unspecified; I50.20 Unspecified systolic (congestive) heart failure; I48.91 Unspecified atrial fibrillation; Z87.891 Personal history of nicotine dependence; Z79.01 Long term (current) use of anticoagulants; Z79.899 Other long term (current) drug therapy; Z91.041 Radiographic dye allergy status; Z88.8 Allergy status to other drugs, medicaments and biological substances
CPT/HCPCS: 71046; 74176; 80053; 83690; 84484; 85025; 93005; 93010; J0780; J2270; J2405